=== PATIENT | male | born 1985 | race Caucasian/White ===

== ENCOUNTER 2022-05-04 15:42 | Emergency (ER) | payer OTHER, SELFPAY ==
--- NOTE | 2022-05-04 15:44 | ED.WOUNDLAC ---
HPI - Wound/Laceration General Chief Complaint: Wound/Laceration Stated Complaint: laceration rt hand Time Seen by Provider: 05/04/22 16:08 Source: patient and RN notes reviewed Mode of arrival: ambulatory Limitations: no limitations History of Present Illness HPI narrative: 37-year-old male with history of Crohn's disease on immunosuppressant presents for concern for possible infected wound. Reports Thursday he developed an abrasion on the palm of his hand. Reports he has been using antibiotic ointment, washing the wound, bandaging the wound. Reports that the beginning of the course he used hydrogen peroxide. Reports he is also using an aseptic wipes. He reports the wound bed is becoming yellow, there is redness surrounding the wound with increased tenderness. He denies malaise or fever. He denies red streaking. Related Data Allergies Allergy/AdvReac Type Severity Reaction Status Date / Time Sulfa (Sulfonamide Allergy Unknown Unknown Verified 05/04/22 15:44 Antibiotics) Review of Systems Review of Systems: CONSTITUTIONAL: Denies malaise, chills, sweats, or fever. SKIN: Reports abrasion to the right palm with surrounding redness, tenderness, yellow tissue bed MUSCULOSKELETAL: Denies muscle skeletal pain NEUROLOGIC: Denies headache. All systems reviewed & are unremarkable except as noted in HPI and below PMFSH Comments At time of signature, agree with nursing past medical, surgical, social and family history. There is no relevant family history pertinent to the presenting complaint Exam Narrative: GENERAL: Well-appearing, well-nourished, and in no acute distress. HEAD: Normocephalic, atraumatic. EYES: PERRLA, conjunctivae clear ENT: Mucous membranes moist. NECK: Supple. No lymphadenopathy CHEST: Clear to auscultation. No respiratory distress. HEART: Regular rate and rhythm. SKIN: Warm, dry. Proximally 4 cm abrasion noted to the palm of the right hand beneath the 1st digit with a yellow tissue bed, approximately 0.5 cm erythema and induration surrounding the wound with mild tenderness. NEURO: Alert and oriented x3. PSYCH: Normal mood and affect Course Course Emergency Course: Patient is aware of diagnosis, understands and agrees to treatment plan. Anticipatory guidance given. Patient agrees to follow-up as directed and is aware of reasons to seek care at the emergency department. Portions of this record may have been created with voice recognition software Level of Care: Express Care Visit Vital Signs Vital signs: Vital Signs Temperature 96.9 F L 05/04/22 15:55 Pulse Rate 86 05/04/22 15:55 Respiratory Rate 16 05/04/22 15:55 Blood Pressure 137/82 05/04/22 15:55 Pulse Oximetry 100 05/04/22 15:55 Oxygen Delivery Room Air 05/04/22 15:55 Temperature 96.9 F L 05/04/22 16:14 Pulse Rate 86 05/04/22 16:14 Respiratory Rate 16 05/04/22 16:14 Blood Pressure 137/82 05/04/22 16:14 Pulse Oximetry 100 05/04/22 16:14 Oxygen Delivery Room Air 05/04/22 16:14 Reviewed. MDM - Wound/Laceration MDM Narrative Medical decision making narrative: Exam findings show no acute concerns or changes; patient is non-toxic appearing and is in no distress. Patient is appropriate for outpatient treatment and follow-up. Differential Diagnosis Differential diagnosis: Likely abscess, abrasion, avulsion of skin and other (Wound infection) Critical Care Time Critical Care Time Critical Care Time: No Discharge Plan Discharge Clinical Impression: Infected wound Patient Disposition: Home, Self-Care Condition: Stable Instructions: Antibiotic Form, Wound Infection (ED) Additional Instructions: Please follow up with your Primary Care Doctor if you develop any new symptoms or concerns. Rest and elevate affected area; you can soak the wound in warm soapy water as needed.. Take Motrin 600mg every 8 hours with food for pain. Please take Antibiotics as directed. Twice daily wash the wound ge
[2022-05-04 15:55] VITALS: BP 137/82; PULSE 86; RESP 16; TEMP 36.1; O2SAT 100
[2022-05-04 16:14] VITALS: BP 137/82; PULSE 86; RESP 16; TEMP 36.1; O2SAT 100
== END 2022-05-04 16:20 | disposition home or self-care (01) ==
PROVIDERS: Emergency Provider Nurse Practitioner
DX: L08.89 Other specified local infections of the skin and subcutaneous tissue (principal)
CPT/HCPCS: 99213; G0463